=== PATIENT | male | born 1985 | race Caucasian/White ===

== ENCOUNTER 2025-09-30 09:57 | Outpatient (AMB) | payer OTHER, SELFPAY ==
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
[2025-09-30 10:10] VITALS: BP 118/76; PULSE 80; RESP 20; TEMP 36.6; O2SAT 94; BMI 42.2
== END 2025-09-30 10:24 | disposition home or self-care (01) ==
LOC: HO.HMCFMS 09:58
PROVIDERS: PCP Internal Medicine; Visit Provider Student in an Organized Health Care Education/Training Program
DX: Z87.828 Personal history of other (healed) physical injury and trauma (principal); Z87.81 Personal history of (healed) traumatic fracture; F11.90 Opioid use, unspecified, uncomplicated; F11.11 Opioid abuse, in remission; Z72.0 Tobacco use; D17.9 Benign lipomatous neoplasm, unspecified

== ENCOUNTER 2025-09-30 09:57 | Outpatient (REF) | payer OTHER, SELFPAY ==
[2025-09-30 13:34] LABS: MANUAL DIFF FLAG NO
[2025-09-30 13:42] LABS: Hematocrit 44.5 % (42.0-52.0); Hemoglobin 14.8 g/dl (14.0-18.0); Imm Gran Abs Auto 0.01 X10*3/uL (0.00-0.03); Imm Gran Pct Auto 0.2 % (0.0-0.4); Lymphocytes Absolute Auto 1.9 X10*3/uL (1.2-4.9); Mean Corpuscular HGB Conc 33.3 g/dl (31.0-36.0); Mean Corpuscular Hemoglobin 28.2 pg (27.0-33.0); Mean Corpuscular Volume 84.9 fL (80.0-98.0); NRBC Abs Auto 0.000 X10*3/uL (0.0-0.012); NRBC Pct Auto 0.0 /100WBC (0.0-0.2); Platelet Count 203 X10*3/uL (160-400); Red Blood Count 5.24 X10*6/uL (4.60-5.80); White Blood Count 5.5 X10*3/uL (4.8-10.8)
[2025-09-30 14:25] LABS: Alanine Aminotransferase 169 U/L (0-40); Albumin Level 4.6 g/dL (3.5-5.0); Alkaline Phosphatase 94 U/L (39-117); Anion Gap 13 (12-20); Aspartate Amino Transferase 113 U/L (5-37); Blood Urea Nitrogen 13 mg/dL (9-16); Calcium 9.6 mg/dL (8.4-10.2); Carbon Dioxide 27 mmol/L (22-29); Chloride 105 mmol/L (96-108); Cholesterol 253 mg/dL (<200); Estimated Glomerular Filt Rate > 60; HDL Cholesterol 34 mg/dL (>40); Magnesium 2.0 mg/dL (1.6-2.6); Potassium 4.3 mmol/L (3.3-5.1); Sodium 141 mmol/L (135-145); Total Protein 8.0 g/dL (6.5-8.0); Triglycerides 696 mg/dL (<150)
[2025-09-30 16:13] LABS: Folate 14.8 ng/mL (> or = 4.0); Vitamin B12 536 pg/mL (200-900)
[2025-10-01 03:42] LABS: Syphilis Screen Reactive (Nonreactive)
[2025-10-01 04:04] LABS: HBS Num1 > 1000.00 mIU/mL (0-7.99); HBsAGNum1 0.43 S/CO (0.00-0.99); HIV Num 1 0.05 S/CO (0.00-0.99); Hepatitis B Surface Antigen Negative (Negative); ~HepC Num1 14.48 S/CO (0.00-0.79); ~Hepatitis B Surface Antibody REACTIVE (Nonreactive); ~Hepatitis C Antibody Reactive (Nonreactive)
[2025-10-04 15:33] LABS: VITAMIN D (1,25 OH) D3 35 pg/mL; Vit D (1,25-Dihydroxy) Total 35 pg/mL (18-72); Vitamin D (1,25 OH) D2 <8 pg/mL
[2025-10-07 15:10] LABS: T.Pallidum Particle Agg Test Reactive (Nonreactive)
== END 2025-09-30 09:58 | disposition home or self-care (01) ==
LOC: HO.HKASLDS 09:57
PROVIDERS: PCP Internal Medicine; Visit Provider Student in an Organized Health Care Education/Training Program
DX: Z13.9 Encounter for screening, unspecified (principal); D17.9 Benign lipomatous neoplasm, unspecified; F17.210 Nicotine dependence, cigarettes, uncomplicated; F11.11 Opioid abuse, in remission; Z79.899 Other long term (current) drug therapy; Z87.828 Personal history of other (healed) physical injury and trauma; Z87.81 Personal history of (healed) traumatic fracture
CPT/HCPCS: 36415; 80053; 80061; 82607; 82652; 82746; 83036; 83735; 84443; 85025; 86592; 86706; 86780; 86803; 87340; 87389; 96127; 99202